=== PATIENT | female | born 1955 | race Caucasian/White ===

== ENCOUNTER 2022-07-03 18:57 | Inpatient (IN) ==
[2022-07-03] MEDS ORDERED: ACETAMINOPHEN 1,000 MG/100 ML VIAL IV STA (19:21)
[2022-07-03] MEDS ORDERED: cefTRIAXone SODIUM 2,000 MG/70 ML BAG IV STA (19:34)
[2022-07-03] MEDS ORDERED: SODIUM CHLORIDE 0.9% 1000ML 1,000 ML IV ONE (19:34)
[2022-07-03] MEDS ORDERED: VANCOMYCIN CONSULT ACTIVE PRN (19:34)
[2022-07-03] MEDS ORDERED: VANCOMYCIN HCL 2,250 MG in SODIUM CHLORIDE 0.9% 500 ML IV ONE (19:34)
[2022-07-03] MEDS ORDERED: OPTIRAY 320 500ml IV ONE (19:53)
[2022-07-03 19:55] LABS: iSTAT Creatinine 0.7 mg/dl (0.6-1.3); iSTAT Hemoglobin 11.2 g/dl (12.0-16.0); iSTAT Ionized Calcium 1.38 mmol/l (1.12-1.32); iSTAT Potassium 3.3 mmol/L (3.3-5.0)
[2022-07-03 20:06] LABS: Albumin Globulin Ratio 1.2 (0.9-2); Albumin Level 3.7 gm/dl (3.4-5.0); BUN Creatinine Ratio 37.7 (10-20); Bilirubin,Total 0.5 mg/dl (0.2-1.0); Calcium 10.3 mg/dl (8.6-10.3); Creatinine Clr Calc Pharmacy 95.4 ml/min; Est GFR (African American) 105.9 ml/min; Est GFR (Non-African American) 91.4 ml/min; Magnesium 1.8 mg/dl (1.7-2.4); Potassium 3.3 mmol/L (3.5-5.1); Total Protein 6.7 gm/dl (6.0-8.3)
[2022-07-03 20:15] LABS: Troponin I High Sensitivity 40.1 pg/ml (0-14)
[2022-07-03 20:17] LABS: INR 1.2 (0.9-1.1); Partial Thromboplastin Ratio 1.1; Partial Thromboplastin Time 31.8 Seconds (21.0-31.0); Prothrombin Time 13.5 Seconds (9.0-12.0)
[2022-07-03 20:24] LABS: Procalcitonin 3.91 ng/ml (0-0.5)
--- NOTE | 2022-07-03 20:25 | XRay Report ---
XR chest 1V portable HISTORY: neuro deficit, acute stroke suspected COMPARISON: None. FINDINGS: Slightly rotated study. No pneumothorax. No pleural effusions. No focal lung consolidations to suggest a pneumonia. No evidence for pulmonary edema. Calcified left hilar lymph nodes are noted. Incidental note is made of a small right azygos lobe. The heart is normal in size. Mild scoliosis is noted. Prior cholecystectomy. There is a punctate calcified granuloma within the left midlung zone. IMPRESSION: No acute process. ACT 112: Negative or not required by law. Electronically signed by: Vasquez Gann M.D. 07/03/2022 8:24 PM
[2022-07-03 20:30] LABS: Lyme Ab IgM w/WB Rflx Negative (Negative)
[2022-07-03 20:34] LABS: Lyme Ab IgG w/WB Rflx Positive (Negative)
[2022-07-03 20:45] LABS: Hematocrit (blood only) 35.5 % (37.0-47.0); Mean Corpuscular Hemoglobin 29.3 pg (25.0-34.0); Mean Corpuscular Hgb Conc 33.8 g/dL (32.0-36.0); Mean Corpuscular Volume 86.6 fL (80.0-100.0); Mean Platelet Volume 10.8 fL (9.4-12.4); Platelet Count 81 K/uL (130-400); RDW Standard Deviation 44.2 fL (36.4-46.3); White Blood Count 4.89 K/ul (4.8-10.8)
[2022-07-03 20:46] LABS: Basophils # (auto) 0.01 K/uL (0-0.2); Basophils % (auto) 0.2 %; Immature Granulocytes # (auto) 0.01 K/uL (0.01-0.20); Immature Granulocytes % (auto) 0.2 %; Lymphocytes # (auto) 0.29 K/uL (1.2-3.4); Lymphocytes % (auto) 5.9 %; Monocytes # (auto) 0.08 K/uL (0.11-0.59); Monocytes % (auto) 1.6 %; Neutrophils % (auto) 92.1 %; RBC Morphology Unremarkable
--- NOTE | 2022-07-03 20:51 | CT Scan Report ---
HEAD CT NONCONTRAST CT DOSE: HISTORY: Right-sided weakness. Confusion. neuro deficit, acute stroke suspected TECHNIQUE: Multiaxial CT images of the head were performed without the use of intravenous contrast. A utomated exposure control was utilized for this study. A dose lowering technique was utilized adheri ng to the principles of ALARA. Comparison: None. Findings: The paranasal sinuses and mastoid air cells are clear. The calvarium and skull base are int act. There is no mass, hematoma, midline shift, acute infarct. White matter hypodensity is nonspecifi c but suggestive of microvascular ischemic change. The ventricles and sulci are within normal limits. Impression: No acute intracranial abnormality. ACT 112: Negative or not required by law. Electronically signed by: Vasquez Gann M.D. 07/03/2022 8:49 PM
[2022-07-03] MEDS ORDERED: DOXYCYCLINE HYCLATE 100 MG in DEXTROSE 5% 100 ML IV STA (20:52)
--- NOTE | 2022-07-03 20:59 | CT Scan Report ---
HEAD & NECK CTA HISTORY: Right-sided weakness. Confusion. neuro deficit, acute stroke suspected TECHNIQUE: Multiaxial CT images of the head were performed following the intravenous administration o f contrast to evaluate the major cerebral vessels. Multiaxial CT images of the neck were also perform ed following the intravenous administration of contrast to evaluate the major cervical vessels. Maxim um intensity projection images were also obtained. A dose lowering technique was utilized adhering to the principles of ALARA. COMPARISON: Noncontrast head CT 07/03/2022. FINDINGS: There is no mass, hematoma, midline shift, or acute infarct. Visualized intracranial internal carotid arteries, distal vertebral arteries, and basilar artery are widely patent. There is no significant s tenosis, occlusion, or aneurysm seen within the bilateral ACAs, MCAs, or bumboater. The major dural venous sinuses are patent. The aortic arch and proximal great vessels are widely patent. There is no significant stenosis, occ lusion, or dissection identified within the bilateral common carotid, internal carotid, or vertebral arteries. IMPRESSION: 1. No significant stenosis, occlusion, or aneurysm within the [place]. 2. No significant stenosis, occlusion, or dissection identified within the carotid or vertebral arter ies. ACT 112: Negative or not required by law. Electronically signed by: Vasquez Gann M.D. 07/03/2022 8:57 PM
--- NOTE | 2022-07-03 20:59 | CT Scan Report ---
HEAD & NECK CTA HISTORY: Right-sided weakness. Confusion. neuro deficit, acute stroke suspected TECHNIQUE: Multiaxial CT images of the head were performed following the intravenous administration o f contrast to evaluate the major cerebral vessels. Multiaxial CT images of the neck were also perform ed following the intravenous administration of contrast to evaluate the major cervical vessels. Maxim um intensity projection images were also obtained. A dose lowering technique was utilized adhering to the principles of ALARA. COMPARISON: Noncontrast head CT 07/03/2022. FINDINGS: There is no mass, hematoma, midline shift, or acute infarct. Visualized intracranial internal carotid arteries, distal vertebral arteries, and basilar artery are widely patent. There is no significant s tenosis, occlusion, or aneurysm seen within the bilateral ACAs, MCAs, or card assembler. The major dural venous sinuses are patent. The aortic arch and proximal great vessels are widely patent. There is no significant stenosis, occ lusion, or dissection identified within the bilateral common carotid, internal carotid, or vertebral arteries. IMPRESSION: 1. No significant stenosis, occlusion, or aneurysm within the [place]. 2. No significant stenosis, occlusion, or dissection identified within the carotid or vertebral arter ies. ACT 112: Negative or not required by law. Electronically signed by: Vasquez Gann M.D. 07/03/2022 8:57 PM
[2022-07-03] MEDS ORDERED: MAGNESIUM SULFATE / D5W 1 GM/100 ML BAG IV ONE (22:19)
[2022-07-03] MEDS ORDERED: NSS + 20MEQ KCL 20 MEQ/1,000 ML BAG IV ONE (22:19)
--- NOTE | 2022-07-03 22:52 | Emergency Department Note ---
History of Present Illness General Chief complaint: Lethargic Stated complaint: LETHARGIC Time Seen by Provider: 07/03/22 19:21 Source: family (Daughter at bedside) History of Present Illness Provider complaint: Lethargy Onset (ago): day(s) 2 67-year-old [facility] female presents to the emergency department with her daughter for lethargy and confusion. Daughter reports that starting on Saturday she noticed that the patient was becoming more confused. She reports nobody saw her yesterday that she did not report for work so they went to go check on her today and she was very confused and appeared very lethargic. Daughter reports that she was recently bit by a tick 1 week ago and they took her to a local doctor today who started her on doxycycline. No reported trauma. No other medical problems. Home Medications Medication Instructions Recorded Confirmed Type doxycycline monohydrate 100 mg 100 mg PO BID 07/03/22 07/03/22 History capsule Allergies Allergy/AdvReac Type Severity Reaction Status Date / Time No Known Allergies Allergy Verified 07/03/22 19:37 Past Med/Surg History Medical History No pertinent family history No pertinent past medical history Surgical History No pertinent past surgical history Social History Smoking Status: Never smoker Feels Safe at Home: Yes Physical Exam Vital Signs Vital Signs - 24 hr 07/03/22 18:43 07/03/22 19:12 07/03/22 18:44 Temperature 38.2 C H Temperature Source Oral Pulse Rate 74 76 Pulse Rate from SpO2 Sensor Respiratory Rate 20 Respiratory Effort / Characteristics Non-Labored Spontaneous Respiratory Depth Normal Blood Pressure 133/71 Blood Pressure Mean 91 Pulse Oximetry 94 94 Oxygen Delivery Method Room Air Room Air Sepsis Recent Fever Within 48 Hours Yes Sepsis New/Unexplained Change in Mental Status Yes Sepsis Action Taken by Nursing Physician Notified 07/03/22 18:44 07/03/22 21:02 07/03/22 19:10 Temperature 37.6 C H Temperature Source Oral Pulse Rate 77 Pulse Rate from SpO2 Sensor 77 Respiratory Rate 21 Respiratory Effort / Characteristics Non-Labored Spontaneous Respiratory Depth Blood Pressure Blood Pressure Mean Pulse Oximetry 94 Oxygen Delivery Method Sepsis Recent Fever Within 48 Hours Sepsis New/Unexplained Change in Mental Status Sepsis Action Taken by Nursing 07/03/22 19:20 07/03/22 19:30 07/03/22 19:31 Temperature Temperature Source Pulse Rate 72 74 74 Pulse Rate from SpO2 Sensor 72 73 74 Respiratory Rate 20 20 19 Respiratory Effort / Characteristics Respiratory Depth Blood Pressure 126/72 Blood Pressure Mean 90 Pulse Oximetry 94 97 100 Oxygen Delivery Method Sepsis Recent Fever Within 48 Hours Sepsis New/Unexplained Change in Mental Status Sepsis Action Taken by Nursing 07/03/22 19:40 07/03/22 20:07 07/03/22 20:09 Temperature Temperature Source Pulse Rate 73 70 69 Pulse Rate from SpO2 Sensor 73 69 Respiratory Rate 20 16 18 Respiratory Effort / Characteristics Respiratory Depth Blood Pressure 125/69 Blood Pressure Mean 87 Pulse Oximetry 99 97 Oxygen Delivery Method Sepsis Recent Fever Within 48 Hours Sepsis New/Unexplained Change in Mental Status Sepsis Action Taken by Nursing 07/03/22 20:10 07/03/22 20:20 07/03/22 20:30 Temperature Temperature Source Pulse Rate 69 68 69 Pulse Rate from SpO2 Sensor 69 68 Respiratory Rate 17 17 18 Respiratory Effort / Characteristics Respiratory Depth Blood Pressure Blood Pressure Mean Pulse Oximetry 96 93 Oxygen Delivery Method Sepsis Recent Fever Within 48 Hours Sepsis New/Unexplained Change in Mental Status Sepsis Action Taken by Nursing 07/03/22 20:35 07/03/22 20:40 07/03/22 20:45 Temperature Temperature Source Pulse Rate 67 67 67 Pulse Rate from SpO2 Sensor 67 67 67 Respiratory Rate 17 16 17 Respiratory Effort / Characteristics Respiratory Depth Blood Pressure 117/66 117/65 Blood Pressure Mean 83 82 Pulse Oximetry 97 96 99 Oxygen Delivery Method Sepsis Recent Fever Within 48 Hours Sepsis New/Unexplained Change in Mental Status Sepsis Action Taken by Nursing 07/03/22 20:50 07/03/22 21:00 07/03/22 22:45 Temperature 37.2 C Temperature Source Oral Pulse Rate 67 70 Pulse Rate from SpO2 Sensor 67 70 Respiratory Rate 16 17 Respiratory Effort / Characteristics Respiratory Depth Blood Pressure 121/67 Blood Pressure Mean 85 Pulse Oximetry 95 93 Oxygen Delivery Method Sepsis Recent Fever Within 48 Hours Sepsis New/Unexplained Change in Mental Status Sepsis Action Taken by Nursing 07/03/22 21:10 07/03/22 21:15 07/03/22 21:20 Temperature Temperature Source Pulse Rate 64 64 65 Pulse Rate from SpO2 Sensor 64 65 65 Respiratory Rate 15 17 16 Respiratory Effort / Characteristics Respiratory Depth Blood Pressure 102/67 Blood Pressure Mean 78 Pulse Oximetry 92 94 93 Oxygen Delivery Method Sepsis Recent Fever Within 48 Hours Sepsis New/Unexplained Change in Mental Status Sepsis Action Taken by Nursing 07/03/22 21:30 07/03/22 21:40 07/03/22 21:45 Temperature Temperature Source Pulse Rate 60 61 60 Pulse Rate from SpO2 Sensor 66 61 60 Respiratory Rate 16 15 16 Respiratory Effort / Characteristics Respiratory Depth Blood Pressure 114/63 102/65 Blood Pressure Mean 80 77 Pulse Oximetry 93 93 93 Oxygen Delivery Method Sepsis Recent Fever Within 48 Hours Sepsis New/Unexplained Change in Mental Status Sepsis Action Taken by Nursing 07/03/22 21:50 07/03/22 22:00 07/03/22 22:10 Temperature Temperature Source Pulse Rate 60 58 L 58 L Pulse Rate from SpO2 Sensor 60 58 L 58 L Respiratory Rate 15 15 14 Respiratory Effort / Characteristics Respiratory Depth Blood Pressure 114/67 Blood Pressure Mean 82 Pulse Oximetry 92 93 93 Oxygen Delivery Method Sepsis Recent Fever Within 48 Hours Sepsis New/Unexplained Change in Mental Status Sepsis Action Taken by Nursing 07/03/22 22:15 07/03/22 22:20 07/03/22 22:30 Temperature Temperature Source Pulse Rate 57 L 56 L 56 L Pulse Rate from SpO2 Sensor 57 L 57 L 56 L Respiratory Rate 15 15 15 Respiratory Effort / Characteristics Respiratory Depth Blood Pressure 102/63 104/65 Blood Pressure Mean 76 78 Pulse Oximetry 94 93 96 Oxygen Delivery Method Sepsis Recent Fever Within 48 Hours Sepsis New/Unexplained Change in Mental Status Sepsis Action Taken by Nursing 07/03/22 22:40 Temperature Temperature Source Pulse Rate 54 L Pulse Rate from SpO2 Sensor 54 L Respiratory Rate 14 Respiratory Effort / Characteristics Respiratory Depth Blood Pressure Blood Pressure Mean Pulse Oximetry 95 Oxygen Delivery Method Sepsis Recent Fever Within 48 Hours Sepsis New/Unexplained Change in Mental Status Sepsis Action Taken by Nursing Physical Exam HENT: Exam performed. -Head: Normocephalic and atraumatic. -Right Ear: External ear normal. No mastoid erythema -Left Ear: External ear normal. No mastoid erythema -Mouth/Throat: The oropharynx is clear and moist. No trismus in the jaw. No dental abscesses or uvula swelling. No oropharyngeal exudate or tonsillar abscesses. EYES: Conjunctivae and EOM are normal. Pupils are equal, round, and reactive to light. Right eye exhibits no discharge. Left eye exhibits no discharge. No scleral icterus. NECK: Normal range of motion. Neck supple. No JVD present. No spinous process tenderness present. No rigidity. No tracheal deviation and normal range of motion present. No Brudzinski's sign and no Kernig's sign noted. CV: Normal rate, regular rhythm, normal heart sounds and intact distal pulses. There is no peripheral edema. Palpable radial pulses bue. PULM/CHEST: Effort normal and breath sounds normal. No respiratory distress. No stridor. She has no wheezes. She has no rales. -Chest Wall: She exhibits no tenderness. ABD: The abdomen is soft. Bowel sounds are normal. She has no distension.There is no rebound, no guarding. NEURO: She is alert and oriented to person, but not to place or time. Mild dysarthria. Mild expressive aphasia. No leg drift no arm drift. Sensation intact. SKIN: Large erythematous and warm to touch region over the patient's posterior left thigh where the daughter states she was bit by a tick. There is no target lesion. No fluctuant areas. No vesicles. Nikolsky negative. Consistent with appearance of cellulitis. Course Course 1920: The patient was evaluated in room B2. A complete history and physical exam was performed Cardiac monitoring: An order was placed for continuous cardiac monitoring. The monitor shows a rate of 60 with sinus rhythm interpreted by me Patient was last seen normal more than 24 hours ago no code stroke was called. Patient does appear to have large cellulitis on her left posterior thigh. Empiric antibiotics vancomycin and Rocephin ordered for the patient. 2049: Patient's labs show mild hyponatremia and mildly elevated liver function tests. Lyme IgM negative Lyme IgG positive. There is strong concern for anaplasmosis given the patient's labs and presentation. Doxycycline 100 mg IV ordered for the patient as well. 2119: Vital signs stable. CT head CTA head and neck are negative. Labs show a white blood cell count of 4.89 on the lower side of normal. Thrombocytopenia with platelet count of 81. Sodium 130. Potassium 3.3. AST 76 ALT 39. Troponin elevated at 40.1. Procalcitonin elevated 3.91. Red blood cell morphology was unremarkable on the peripheral smear showed interest cytoplasmic neutrophilic inclusions which again goes with the concern for anaplasmosis. Patient will be admitted to the [facility] team Dr. Banks will be notified. Administered Medications Doxycycline Hyclate 100 mg/ (Dextrose) 110 mls @ 50 mls/hr IV NOW STA Stop: 07/03/22 23:03 Last Admin: 07/03/22 21:08 Dose: 50 mls/hr Documented By: JESSI Discontinued Medications Acetaminophen (Ofirmev) 1,000 mg in 100 mls @ 400 mls/hr IV NOW STA Stop: 07/03/22 19:35 Last Infusion: 07/03/22 21:00 Dose: 0 mls/hr Documented By: Admin: 07/03/22 20:15 Dose: 400 mls/hr Documented By: JESSI Sodium Chloride (Nss 1000ml) 1,000 mls @ 999 mls/hr IV .Q1H1M ONE Stop: 07/03/22 20:34 Last Infusion: 07/03/22 21:02 Dose: 0 mls/hr Documented By: Admin: 07/03/22 20:00 Dose: 999 mls/hr Documented By: JESSI Ceftriaxone Sodium (Rocephin) 2,000 mg in 70 mls @ 140 mls/hr IV NOW STA Stop: 07/03/22 20:03 Last Infusion: 07/03/22 21:02 Dose: 0 mls/hr Documented By: Admin: 07/03/22 20:30 Dose: 140 mls/hr Documented By: JESSI Ioversol (Optiray 320 500ml) 115 ml IV ONCE ONE Stop: 07/03/22 19:54 Last Admin: 07/03/22 19:53 Dose: 115 ml Documented By: ELSI Medical Decision Making Laboratory Data Attestation: I reviewed the patient's lab results. 07/03/22 19:15 07/03/22 19:15 Lab Results 07/03/22 07/03/22 07/03/22 Range/Units 19:15 19:15 19:15 WBC 4.89 (4.8-10.8) K/ul RBC 4.10 L (4.20-5.40) M/uL Hgb 12.0 (12.0-16.0) g/dl POC Hgb (12.0-16.0) g/dl Hct 35.5 L (37.0-47.0) % POC Hct (37-47) % MCV 86.6 (80.0-100.0) fL MCH 29.3 (25.0-34.0) pg MCHC 33.8 (32.0-36.0) g/dL RDW Std Deviation 44.2 (36.4-46.3) fL RDW Coeff of Rashaun 14.0 (11.5-14.5) % Plt Count 81 L (130-400) K/uL MPV 10.8 (9.4-12.4) fL Immature Gran % (Auto) 0.2 % Neut % (Auto) 92.1 % Lymph % (Auto) 5.9 % Gonzales % (Auto) 1.6 % Eos % (Auto) 0.0 % Baso % (Auto) 0.2 % Neut # (Auto) 4.50 (1.40-6.50) K/uL Lymph # (Auto) 0.29 L (1.2-3.4) K/uL Gonzales # (Auto) 0.08 L (0.11-0.59) K/uL Eos # (Auto) 0.00 (0-0.50) K/uL Baso # (Auto) 0.01 (0-0.2) K/uL Immature Gran # (Auto) 0.01 (0.01-0.20) K/uL RBC Morphology Unremarkable PT 13.5 H (9.0-12.0) Seconds INR 1.2 H (0.9-1.1) APTT 31.8 H (21.0-31.0) Seconds PTT Ratio 1.1 POC Sodium (135-144) mmol/L Sodium 130 L (136-145) mmol/L POC Potassium (3.3-5.0) mmol/L Potassium 3.3 L (3.5-5.1) mmol/L POC Chloride (101-112) mmol/L Chloride 101 (98-107) mmol/L Carbon Dioxide 23 (21-32) mmol/L POC Total CO2 (24-31) mmol/L Anion Gap 6 (3-11) POC Anion Gap (16-25) mmol/L POC BUN (7-18) mg/dl BUN 26 H (6-23) mg/dl Creatinine 0.69 (0.6-1.2) mg/dl POC Creatinine (0.6-1.3) mg/dl Est Cr Clr Drug Dosing 95.4 ml/min Est GFR ( Amer) 105.9 ml/min Est GFR (Non-Af Amer) 91.4 ml/min BUN/Creatinine Ratio 37.7 H (10-20) Glucose 110 H (70-99(Fasting)) mg/dl POC Glucose (other) (70-99) mg/dl Lactate (0.4-2.0) mmol/L Calcium 10.3 (8.6-10.3) mg/dl POC Ioniz Calcium Harini (1.12-1.32) mmol/l Magnesium 1.8 (1.7-2.4) mg/dl Total Bilirubin 0.5 (0.2-1.0) mg/dl AST 76 H (13-39) U/L ALT 39 (7-52) U/L Alkaline Phosphatase 68 (34-104) U/L Troponin I High Sens 40.1 H (0-14) pg/ml Total Protein 6.7 (6.0-8.3) gm/dl Albumin 3.7 (3.4-5.0) gm/dl Globulin 3.0 (2.5-4.0) gm/dl Albumin/Globulin Ratio 1.2 (0.9-2) Procalcitonin (0-0.5) ng/ml Anaplasma Smear See Comment A Babesia Smear See Comment Lyme Disease IgG Ab (Negative) Lyme Disease IgM Ab (Negative) Blood Type Antibody Screen 07/03/22 07/03/22 07/03/22 Range/Units 19:15 19:41 20:19 WBC (4.8-10.8) K/ul RBC (4.20-5.40) M/uL Hgb (12.0-16.0) g/dl POC Hgb 11.2 L (12.0-16.0) g/dl Hct (37.0-47.0) % POC Hct 33 L (37-47) % MCV (80.0-100.0) fL MCH (25.0-34.0) pg MCHC (32.0-36.0) g/dL RDW Std Deviation (36.4-46.3) fL RDW Coeff of Rashaun (11.5-14.5) % Plt Count (130-400) K/uL MPV (9.4-12.4) fL Immature Gran % (Auto) % Neut % (Auto) % Lymph % (Auto) % Gonzales % (Auto) % Eos % (Auto) % Baso % (Auto) % Neut # (Auto) (1.40-6.50) K/uL Lymph # (Auto) (1.2-3.4) K/uL Gonzales # (Auto) (0.11-0.59) K/uL Eos # (Auto) (0-0.50) K/uL Baso # (Auto) (0-0.2) K/uL Immature Gran # (Auto) (0.01-0.20) K/uL RBC Morphology PT (9.0-12.0) Seconds INR (0.9-1.1) APTT (21.0-31.0) Seconds PTT Ratio POC Sodium 133 L (135-144) mmol/L Sodium (136-145) mmol/L POC Potassium 3.3 (3.3-5.0) mmol/L Potassium (3.5-5.1) mmol/L POC Chloride 101 (101-112) mmol/L Chloride (98-107) mmol/L Carbon Dioxide (21-32) mmol/L POC Total CO2 22 L (24-31) mmol/L Anion Gap (3-11) POC Anion Gap 15.0 L (16-25) mmol/L POC BUN 24 H (7-18) mg/dl BUN (6-23) mg/dl Creatinine (0.6-1.2) mg/dl POC Creatinine 0.7 (0.6-1.3) mg/dl Est Cr Clr Drug Dosing ml/min Est GFR ( Amer) ml/min Est GFR (Non-Af Amer) ml/min BUN/Creatinine Ratio (10-20) Glucose (70-99(Fasting)) mg/dl POC Glucose (other) 102 H (70-99) mg/dl Lactate 1.1 (0.4-2.0) mmol/L Calcium (8.6-10.3) mg/dl POC Ioniz Calcium Harini 1.38 H (1.12-1.32) mmol/l Magnesium (1.7-2.4) mg/dl Total Bilirubin (0.2-1.0) mg/dl AST (13-39) U/L ALT (7-52) U/L Alkaline Phosphatase (34-104) U/L Troponin I High Sens (0-14) pg/ml Total Protein (6.0-8.3) gm/dl Albumin (3.4-5.0) gm/dl Globulin (2.5-4.0) gm/dl Albumin/Globulin Ratio (0.9-2) Procalcitonin 3.91 H (0-0.5) ng/ml Anaplasma Smear Babesia Smear Lyme Disease IgG Ab Positive A (Negative) Lyme Disease IgM Ab Negative (Negative) Blood Type Antibody Screen 07/03/22 Range/Units 20:20 WBC (4.8-10.8) K/ul RBC (4.20-5.40) M/uL Hgb (12.0-16.0) g/dl POC Hgb (12.0-16.0) g/dl Hct (37.0-47.0) % POC Hct (37-47) % MCV (80.0-100.0) fL MCH (25.0-34.0) pg MCHC (32.0-36.0) g/dL RDW Std Deviation (36.4-46.3) fL RDW Coeff of Rashaun (11.5-14.5) % Plt Count (130-400) K/uL MPV (9.4-12.4) fL Immature Gran % (Auto) % Neut % (Auto) % Lymph % (Auto) % Gonzales % (Auto) % Eos % (Auto) % Baso % (Auto) % Neut # (Auto) (1.40-6.50) K/uL Lymph # (Auto) (1.2-3.4) K/uL Gonzales # (Auto) (0.11-0.59) K/uL Eos # (Auto) (0-0.50) K/uL Baso # (Auto) (0-0.2) K/uL Immature Gran # (Auto) (0.01-0.20) K/uL RBC Morphology PT (9.0-12.0) Seconds INR (0.9-1.1) APTT (21.0-31.0) Seconds PTT Ratio POC Sodium (135-144) mmol/L Sodium (136-145) mmol/L POC Potassium (3.3-5.0) mmol/L Potassium (3.5-5.1) mmol/L POC Chloride (101-112) mmol/L Chloride (98-107) mmol/L Carbon Dioxide (21-32) mmol/L POC Total CO2 (24-31) mmol/L Anion Gap (3-11) POC Anion Gap (16-25) mmol/L POC BUN (7-18) mg/dl BUN (6-23) mg/dl Creatinine (0.6-1.2) mg/dl POC Creatinine (0.6-1.3) mg/dl Est Cr Clr Drug Dosing ml/min Est GFR ( Amer) ml/min Est GFR (Non-Af Amer) ml/min BUN/Creatinine Ratio (10-20) Glucose (70-99(Fasting)) mg/dl POC Glucose (other) (70-99) mg/dl Lactate (0.4-2.0) mmol/L Calcium (8.6-10.3) mg/dl POC Ioniz Calcium Harini (1.12-1.32) mmol/l Magnesium (1.7-2.4) mg/dl Total Bilirubin (0.2-1.0) mg/dl AST (13-39) U/L ALT (7-52) U/L Alkaline Phosphatase (34-104) U/L Troponin I High Sens (0-14) pg/ml Total Protein (6.0-8.3) gm/dl Albumin (3.4-5.0) gm/dl Globulin (2.5-4.0) gm/dl Albumin/Globulin Ratio (0.9-2) Procalcitonin (0-0.5) ng/ml Anaplasma Smear Babesia Smear Lyme Disease IgG Ab (Negative) Lyme Disease IgM Ab (Negative) Blood Type A Negative Antibody Screen NEGATIVE Imaging Data Attestation: I personally reviewed and interpreted this imaging study as follows: My Impression: CT head: No [facility] Radiologist's Impression: Chest X-Ray 07/03/22 19:21 XR chest 1V portable HISTORY: neuro deficit, acute stroke suspected COMPARISON: None. FINDINGS: Slightly rotated study. No pneumothorax. No pleural effusions. No focal lung consolidations to suggest a pneumonia. No evidence for pulmonary edema. Calcified left hilar lymph nodes are noted. Incidental note is made of a small right azygos lobe. The heart is normal in size. Mild scoliosis is noted. Prior cholecystectomy. There is a punctate calcified granuloma within the left midlung zone. IMPRESSION: No acute process. ACT 112: Negative or not required by law. Electronically signed by: Vasquez Gann M.D. 07/03/2022 8:[address] 07/03/22 19:[address] DOSE: HISTORY: Right-sided weakness. Confusion. neuro deficit, acute stroke suspected TECHNIQUE: Multiaxial CT images of the head were performed without the use of intravenous contrast. Automated exposure control was utilized for this study. A dose lowering technique was utilized adhering to the principles of ALARA. Comparison: None. Findings: The paranasal sinuses and mastoid air cells are clear. The calvarium and skull base are intact. There is no mass, hematoma, midline shift, acute infarct. White matter hypodensity is nonspecific but suggestive of microvascular ischemic change. The ventricles and sulci are within normal limits. Impression: No acute intracranial abnormality. ACT 112: Negative or not required by law. Electronically signed by: Vasquez Gann M.D. 07/03/2022 8:49 PM Head CTA 07/03/22 19:21 HEAD & NECK CTA HISTORY: Right-sided weakness. Confusion. neuro deficit, acute stroke suspected TECHNIQUE: Multiaxial CT images of the head were performed following the intrave nous administration of contrast to evaluate the major cerebral vessels. Multiaxial CT images of the neck were also performed following the intravenous administration of contrast to evaluate the major cervical vessels. Maximum intensity projection images were also obtained. A dose lowering technique was utilized adhering to the principles of ALARA. COMPARISON: Noncontrast head CT 07/03/2022. FINDINGS: There is no mass, hematoma, midline shift, or acute infarct. Visualized intracranial internal carotid arteries, distal vertebral arteries, and basilar artery are widely patent. There is no significant stenosis, occlusion, or aneurysm seen within the bilateral ACAs, MCAs, or contract negotiation manager. The major dural venous sinuses are patent. The aortic arch and proximal great vessels are widely patent. There is no significant stenosis, occlusion, or dissection identified within the bilateral common carotid, internal carotid, or vertebral arteries. IMPRESSION: 1. No significant stenosis, occlusion, or aneurysm within the knik of [place]. 2. No significant stenosis, occlusion, or dissection identified within the carotid or vertebral arteries. ACT 112: Negative or not required by law. Electronically signed by: Vasquez Gann M.D. 07/03/2022 8:57 PM Neck CTA 07/03/22 19:21 HEAD & NECK CTA HISTORY: Right-sided weakness. Confusion. neuro deficit, acute stroke suspected TECHNIQUE: Multiaxial CT images of the head were performed following the intravenous administration of contrast to evaluate the major cerebral vessels. Multiaxial CT images of the neck were also performed following the intravenous administration of contrast to evaluate the major cervical vessels. Maximum intensity projection images were also obtained. A dose lowering technique was utilized adhering to the principles of ALARA. COMPARISON: Noncontrast head CT 07/03/2022. FINDINGS: There is no mass, hematoma, midline shift, or acute infarct. Visualized intracranial internal carotid arteries, distal vertebral arteries, and basilar artery are widely patent. There is no significant stenosis, occlusion, or aneurysm seen within the bilateral ACAs, MCAs, or contract negotiation manager. The major dural venous sinuses are patent. The aortic arch and proximal great vessels are widely patent. There is no significant stenosis, occlusion, or dissection identified within the bilateral common carotid, internal carotid, or vertebral arteries. IMPRESSION: 1. No significant stenosis, occlusion, or aneurysm within the knik of [place]. 2. No significant stenosis, occlusion, or dissection identified within the carotid or vertebral arteries. ACT 112: Negative or not required by law. Electronically signed by: Vasquez Gann M.D. 07/03/2022 8:57 PM ECG Data Attestation: I personally reviewed and interpreted this ECG as follows: Indication: + altered mental status Rate (beats per minute): 74 Rhythm: + normal sinus ECG Intervals/blocks: + Normal QRS, + Normal IA and + Normal QT-c ECG ST segments: + Normal ST segments MDM Narrative 1920: The patient was evaluated in room B2. A complete history and physical exam was performed Cardiac monitoring: An order was placed for continuous cardiac monitoring. The monitor shows a rate of 60 with sinus rhythm interpreted by me Patient was last seen normal more than 24 hours ago no code stroke was called. Patient does appear to have large cellulitis on her left posterior thigh. Empiric antibiotics vancomycin and Rocephin ordered for the patient. 2049: Patient's labs show mild hyponatremia and mildly elevated liver function tests. Lyme IgM negative Lyme IgG positive. There is strong concern for anaplasmosis given the patient's labs and presentation. Doxycycline 100 mg IV ordered for the patient as well. 2119: Vital signs stable. CT head CTA head and neck are negative. Labs show a white blood cell count of 4.89 on the lower side of normal. Thrombocytopenia with platelet count of 81. Sodium 130. Potassium 3.3. AST 76 ALT 39. Troponin elevated at 40.1. Procalcitonin elevated 3.91. Red blood cell morphology was unremarkable on the peripheral smear showed interest cytoplasmic neutrophilic inclusions which again goes with the concern for anaplasmosis. Patient will be admitted to the [facility]ist team Dr. Banks will be notified. Impression & Plan Anaplasmosis, Elevated troponin Discharge Plan Visit Data Chief Complaint: Lethargic Stated Complaint: LETHARGIC ED Provider: Wesley Espino Discharge Problem: Anaplasmosis, Elevated troponin Patient Disposition: Admitted As Inpatient Forms Stand Alone Forms: [facility] Prescriptions Prescriptions: No Action doxycycline monohydrate 100 mg Capsule 100 mg PO BID Rx Instructions: STARTED 07/03/22 Referrals Referrals: PCP,NO [Primary Care Provider] -
[2022-07-04] MEDS ORDERED: ATROPINE SULFATE 0.1 MG/ML 10ML SYR IV STA (01:35)
--- NOTE | 2022-07-04 01:35 | History & Physical Report ---
Date of Service July 04, 2022 Assessment & Plan (1) Sepsis: Plan: Severe sepsis SIRS plus encephalopathy Likely from tickborne infection and systemic manifestations [PRACTICE ASSISTANT (transient right facial weakness rule out TIA) and cardiovascular (bradycardia causing hypotension and encephalopathy)] Another source would be left lower extremity wound for few months duration rule out osteomyelitis Abnormal LFTs likely secondary to tickborne infection Hyperglycemia rule out DM Leukopenia, thrombocytopenia secondary to illness PCU given hypotension, bradycardia IV atropine 1 dose now CS, ceftriaxone and doxycycline Follow-up tickborne panel results CT left lower leg rule out abscess ID consult MRI brain, TTE for TIA work-up Follow LFTs Peripheral blood smear Re: Abnormal CBC check hemoglobin A1c Further management pending work-up results DVT prophylaxis. SCDs Re: Thrombocytopenia Full code Patient daughter requesting updates providers. ( Elba Alarcon, contact #[phone].) Text document was generated using [employer] voice recognition software. It may contain grammatical or spelling errors. Kindly contact undersigned for clarification of any documentation item in question. History of Present Illness Chief Complaint: weak all over Primary Care Provider: NO PCP History obtained from patient, family, and records. Limited history from patient secondary to the lethargic state. No significant medical history. Patient has had a wound on the left lower leg for a few months now as per daughter. Daughter not sure if patient had consulted a doctor for issue. Patient noted to have worsening confusion and lethargy over the last 2 days. Possible tick bite on her left leg close to the knee last week. Local doctor started patient on doxycycline course. Patient feeling weak all over. Denies headache, chest pain, SOB, abdominal pain. Patient noted to have transient right facial weakness. At the ER, IV vancomycin, ceftriaxone, and doxycycline administered for sepsis. Patient mentation much improved as per daughter. Patient BP later noted to be 90s, heart rate 50s. Medical History as above Surgical History : Cholecystectomy Family History : DM Personal/Social history : Non-smoker, no EtOH intake, grocery employee Allergies Allergy/AdvReac Type Severity Reaction Status Date / Time No Known Allergies Allergy Verified 07/03/22 19:37 Home Medications Medication Instructions Recorded Confirmed Type doxycycline monohydrate 100 mg 100 mg PO BID 07/03/22 07/03/22 History capsule Past Med/Surg History Medical History No pertinent family history No pertinent past medical history Surgical History No pertinent past surgical history Social History Smoking Status: Never smoker Second Hand Exposure: No; Do You Dip or Chew Tobacco: No; Tobacco Cessation Education Requested by Patient: No Hx Alcohol Use: No Hx Substance Use: No Preferred Language: Mosotho Communication Ability: Effective Communication Tools: Other Instructor Tap Dancing Required: Yes Beliefs That Will Affect Care: None Current Living Situation: Alone and Family Other Information That Helps Us Care for You: No Feels Safe at Home: Yes Safety Concerns: Feels Safe At This Time Assistive Devices: None Review of Systems Review of Systems: Could not be reliably obtained secondary to lethargic state Physical Exam Physical Exam: GENERAL: Lethargic, no respiratory distress SKIN: Normal color, warm HEENT: [place] palpebral conjunctivae, no ptosis, dry buccal mucosa NECK : Supple, no tenderness CHEST : CTA, no tenderness HEART : Bradycardic, no obvious murmurs ABDOMEN: Some distention, nontender EXTREMITIES : Scaly rash over left lower extremity, minimal LLE swelling/tenderness, no other conspicuous deformities noted NEUROLOGIC : Lethargic, no facial asymmetry, gait and stance not assessed Results & Data Results & Data Vital Signs (Past 12 Hours) Vital Signs Temp Pulse Resp BP Pulse Ox O2 Del Method 07/04/22 00:38 36.5 C 07/04/22 00:20 51 L 14 07/04/22 00:15 51 L 14 93/69 L 07/04/22 00:10 52 L 14 07/04/22 00:00 52 L 14 07/03/22 23:50 51 L 16 07/03/22 23:40 52 L 16 07/03/22 23:30 51 L 14 109/64 97 07/03/22 23:20 52 L 16 99 07/03/22 23:15 52 L 14 97/68 L 92 07/03/22 23:10 53 L 13 95 07/03/22 23:00 53 L 13 110/72 95 07/03/22 22:50 55 L 16 97 07/03/22 23:39 36.5 C 07/03/22 23:14 53 L 07/03/22 22:40 54 L 14 95 07/03/22 22:30 56 L 15 104/65 96 07/03/22 22:20 56 L 15 93 07/03/22 22:15 57 L 15 102/63 94 07/03/22 22:10 58 L 14 93 07/03/22 22:00 58 L 15 114/67 93 07/03/22 21:50 60 15 92 07/03/22 21:45 60 16 102/65 93 07/03/22 21:40 61 15 93 07/03/22 21:30 60 16 114/63 93 07/03/22 21:20 65 16 93 07/03/22 21:15 64 17 102/67 94 07/03/22 21:10 64 15 92 07/03/22 22:45 37.2 C 07/03/22 21:00 70 17 121/67 93 07/03/22 20:50 67 16 95 07/03/22 20:45 67 17 117/65 99 07/03/22 20:40 67 16 96 07/03/22 20:35 67 17 117/66 97 07/03/22 20:30 69 18 93 07/03/22 20:20 68 17 07/03/22 20:10 69 17 96 07/03/22 20:09 69 18 125/69 97 07/03/22 20:07 70 16 07/03/22 19:40 73 20 99 07/03/22 19:31 74 19 126/72 100 07/03/22 19:30 74 20 97 07/03/22 19:20 72 20 94 07/03/22 19:10 77 21 94 07/03/22 21:02 37.6 C H 07/03/22 18:44 94 Room Air 07/03/22 19:12 76 07/03/22 18:43 38.2 C H 74 20 133/71 94 Room Air Laboratory Results Laboratory Results WBC 4.89 K/ul (4.8-10.8) 07/03/22 19:15 RBC 4.10 M/uL (4.20-5.40) L 07/03/22 19:15 Hgb 12.0 g/dl (12.0-16.0) 07/03/22 19:15 POC Hgb 11.2 g/dl (12.0-16.0) L 07/03/22 19:41 Hct 35.5 % (37.0-47.0) L 07/03/22 19:15 POC Hct 33 % (37-47) L 07/03/22 19:41 MCV 86.6 fL (80.0-100.0) 07/03/22 19:15 MCH 29.3 pg (25.0-34.0) 07/03/22 19:15 MCHC 33.8 g/dL (32.0-36.0) 07/03/22 19:15 RDW Std Deviation 44.2 fL (36.4-46.3) 07/03/22 19:15 RDW Coeff of Rashaun 14.0 % (11.5-14.5) 07/03/22 19:15 Plt Count 81 K/uL (130-400) L 07/03/22 19:15 MPV 10.8 fL (9.4-12.4) 07/03/22 19:15 Immature Gran % (Auto) 0.2 % 07/03/22 19:15 Neut % (Auto) 92.1 % 07/03/22 19:15 Lymph % (Auto) 5.9 % 07/03/22 19:15 Cameron % (Auto) 1.6 % 07/03/22 19:15 Eos % (Auto) 0.0 % 07/03/22 19:15 Baso % (Auto) 0.2 % 07/03/22 19:15 Neut # (Auto) 4.50 K/uL (1.40-6.50) 07/03/22 19:15 Lymph # (Auto) 0.29 K/uL (1.2-3.4) L 07/03/22 19:15 Cameron # (Auto) 0.08 K/uL (0.11-0.59) L 07/03/22 19:15 Eos # (Auto) 0.00 K/uL (0-0.50) 07/03/22 19:15 Baso # (Auto) 0.01 K/uL (0-0.2) 07/03/22 19:15 Immature Gran # (Auto) 0.01 K/uL (0.01-0.20) 07/03/22 19:15 RBC Morphology Unremarkable 07/03/22 19:15 PT 13.5 Seconds (9.0-12.0) H 07/03/22 19:15 INR 1.2 (0.9-1.1) H 07/03/22 19:15 APTT 31.8 Seconds (21.0-31.0) H 07/03/22 19:15 PTT Ratio 1.1 07/03/22 19:15 POC Sodium 133 mmol/L (135-144) L 07/03/22 19:41 Sodium 130 mmol/L (136-145) L 07/03/22 19:15 POC Potassium 3.3 mmol/L (3.3-5.0) 07/03/22 19:41 Potassium 3.3 mmol/L (3.5-5.1) L 07/03/22 19:15 POC Chloride 101 mmol/L (101-112) 07/03/22 19:41 Chloride 101 mmol/L (98-107) 07/03/22 19:15 Carbon Dioxide 23 mmol/L (21-32) 07/03/22 19:15 POC Total CO2 22 mmol/L (24-31) L 07/03/22 19:41 Anion Gap 6 (3-11) 07/03/22 19:15 POC Anion Gap 15.0 mmol/L (16-25) L 07/03/22 19:41 POC BUN 24 mg/dl (7-18) H 07/03/22 19:41 BUN 26 mg/dl (6-23) H 07/03/22 19:15 Creatinine 0.69 mg/dl (0.6-1.2) 07/03/22 19:15 POC Creatinine 0.7 mg/dl (0.6-1.3) 07/03/22 19:41 Est Cr Clr Drug Dosing 95.4 ml/min 07/03/22 19:15 Est GFR ( Amer) 105.9 ml/min 07/03/22 19:15 Est GFR (Non-Af Amer) 91.4 ml/min 07/03/22 19:15 BUN/Creatinine Ratio 37.7 (10-20) H 07/03/22 19:15 Glucose 110 mg/dl (70-99(Fasting)) H 07/03/22 19:15 POC Glucose (other) 102 mg/dl (70-99) H 07/03/22 19:41 Lactate 1.1 mmol/L (0.4-2.0) 07/03/22 20:19 Calcium 10.3 mg/dl (8.6-10.3) 07/03/22 19:15 POC Ioniz Calcium Harini 1.38 mmol/l (1.12-1.32) H 07/03/22 19:41 Magnesium 1.8 mg/dl (1.7-2.4) 07/03/22 19:15 Total Bilirubin 0.5 mg/dl (0.2-1.0) 07/03/22 19:15 AST 76 U/L (13-39) H 07/03/22 19:15 ALT 39 U/L (7-52) 07/03/22 19:15 Alkaline Phosphatase 68 U/L (34-104) 07/03/22 19:15 Troponin I High Sens 42.1 pg/ml (0-14) H 07/03/22 22:52 Total Protein 6.7 gm/dl (6.0-8.3) 07/03/22 19:15 Albumin 3.7 gm/dl (3.4-5.0) 07/03/22 19:15 Globulin 3.0 gm/dl (2.5-4.0) 07/03/22 19:15 Albumin/Globulin Ratio 1.2 (0.9-2) 07/03/22 19:15 Procalcitonin 3.91 ng/ml (0-0.5) H 07/03/22 19:15 Anaplasma Smear See Comment A 07/03/22 19:15 Babesia Smear See Comment 07/03/22 19:15 Lyme Disease IgG Ab Positive (Negative) A 07/03/22 19:15 Lyme Disease IgM Ab Negative (Negative) 07/03/22 19:15 SARS-CoV-2, RNA, NAAT NEGATIVE (NEGATIVE) 07/03/22 21:57 Blood Type A Negative 07/03/22 20:20 Antibody Screen NEGATIVE 07/03/22 20:20 Impressions Chest X-Ray 07/03/22 19:21 XR chest 1V portable HISTORY: neuro deficit, acute stroke suspected COMPARISON: None. FINDINGS: Slightly rotated study. No pneumothorax. No pleural effusions. No focal lung consolidations to suggest a pneumonia. No evidence for pulmonary edema. Calcified left hilar lymph nodes are noted. Incidental note is made of a small right azygos lobe. The heart is normal in size. Mild scoliosis is noted. Prior cholecystectomy. There is a punctate calcified granuloma within the left midlung zone. IMPRESSION: No acute process. ACT 112: Negative or not required by law. Electronically signed by: Vasquez Gann M.D. 07/03/2022 8:[address] 07/03/22 19:[address] DOSE: HISTORY: Right-sided weakness. Confusion. neuro deficit, acute stroke suspected TECHNIQUE: Multiaxial CT images of the head were performed without the use of intravenous contrast. Automated exposure control was utilized for this study. A dose lowering technique was utilized adhering to the principles of ALARA. Comparison: None. Findings: The paranasal sinuses and mastoid air cells are clear. The calvarium and skull base are intact. There is no mass, hematoma, midline shift, acute infarct. White matter hypodensity is nonspecific but suggestive of microvascular ischemic change. The ventricles and sulci are within normal limits. Impression: No acute intracranial abnormality. ACT 112: Negative or not required by law. Electronically signed by: Vasquez Gann M.D. 07/03/2022 8:49 PM Head CTA 07/03/22 19:21 HEAD & NECK CTA HISTORY: Right-sided weakness. Confusion. neuro deficit, acute stroke suspected TECHNIQUE: Multiaxial CT images of the head were performed following the intravenous administration of contrast to evaluate the major cerebral vessels. Multiaxial CT images of the neck were also performed following the intravenous administration of contrast to evaluate the major cervical vessels. Maximum intensity projection images were also obtained. A dose lowering technique was utilized adhering to the principles of ALARA. COMPARISON: Noncontrast head CT 07/03/2022. FINDINGS: There is no mass, hematoma, midline shift, or acute infarct. Visualized intracranial internal carotid arteries, distal vertebral arteries, and basilar artery are widely patent. There is no significant stenosis, occlusion, or aneurysm seen within the bilateral ACAs, MCAs, or real time trader. The major dural venous sinuses are patent. The aortic arch and proximal great vessels are widely patent. There is no significant stenosis, occlusion, or dissection identified within the bilateral common carotid, internal carotid, or vertebral arteries. IMPRESSION: 1. No significant stenosis, occlusion, or aneurysm within the [place]. 2. No significant stenosis, occlusion, or dissection identified within the carotid or vertebral arteries. ACT 112: Negative or not required by law. Electronically signed by: Vasquez Gann M.D. 07/03/2022 8:57 PM Neck CTA 07/03/22 19:21 HEAD & NECK CTA HISTORY: Right-sided weakness. Confusion. neuro deficit, acute stroke suspected TECHNIQUE: Multiaxial CT images of the head were performed following the intravenous administration of contrast to evaluate the major cerebral vessels. Multiaxial CT images of the neck were also performed following the intravenous administration of contrast to evaluate the major cervical vessels. Maximum intensity projection images were also obtained. A dose lowering technique was utilized adhering to the principles of ALARA. COMPARISON: Noncontrast head CT 07/03/2022. FINDINGS: There is no mass, hematoma, midline shift, or acute infarct. Visualized intracranial internal carotid arteries, distal vertebral arteries, and basilar artery are widely patent. There is no significant stenosis, occlusion, or aneurysm seen within the bilateral ACAs, MCAs, or real time trader. The major dural venous sinuses are patent. The aortic arch and proximal great vessels are widely patent. There is no significant stenosis, occlusion, or dissection identified within the bilateral common carotid, internal carotid, or vertebral arteries. IMPRESSION: 1. No significant stenosis, occlusion, or aneurysm within the [place]. 2. No significant stenosis, occlusion, or dissection identified within the carotid or vertebral arteries. ACT 112: Negative or not required by law. Electronically signed by: Vasquez Gann M.D. 07/03/2022 8:57 PM Diagnostic Findings EKG as per my interpretation :Rate 75, NSR, normal axis, diffuse T wave abnormalities
[2022-07-04 01:46] LABS: Thyroid Stimulating Hormone 0.288 uIu/ml (0.300-4.500)
--- NOTE | 2022-07-04 02:24 | CT Scan Report ---
Exam(s): CT EXTREMITY LEFT LOWER Without Contrast EXAM: CT Left Lower Extremity Without Intravenous Contrast CLINICAL HISTORY: Reason for exam: swelling. TECHNIQUE: Axial computed tomography images of the left lower extremity without intravenous contrast. CTDI is 4.25 mGy and DLP is 204.66 mGy-cm. Automated exposure control was utilized for the study. A dose lowering technique was utilized adhering to the principles of ALARA. COMPARISON: None. FINDINGS: Bones/joints: Diffuse osteoporosis. Otherwise normal tibia and fibula with no acute fracture or destructive bony lesion seen. Mild degenerative disease at the level of the knee and ankle. Trace joint fluid at the level of the knee. No dislocation. Soft tissues: Unremarkable. Other findings: Diffuse varicosities throughout the calf demonstrated. IMPRESSION: Diffuse osteoporosis with no distinct fracture or subluxation. No distinct bony lesion. Electronically signed by: Ene Diana MD 07/04/22 02:23 AM
[2022-07-04 02:34] LABS: Appearance Urine Clear (Clear); Bacteria Urine Automated Negative (Negative); Bilirubin Urine Negative (Negative); Blood Urine Trace (Negative); Cast Urine Automated 0 /lpf (0-5); Color Urine Yellow; Glucose Urine UA Negative (Negative); Ketones Urine Negative (Negative); Leukocyte Esterase Urine Negative (Negative); Nitrite Urine Negative (Negative); Protein Urine Trace (Negative); RBC Urine Automated 0-4 /hpf (0-4); Specific Gravity Urine 1.044 (1.000-1.030); Urobilinogen Urine Negative (Negative); pH Urine 5.5 (4.5-7.5)
[2022-07-04] MEDS ORDERED: PROMETHAZINE HCL 6.25 MG in SODIUM CHLORIDE 0.9% 50 ML IV PRN (03:45)
[2022-07-04] MEDS ORDERED: IBUPROFEN 200 MG TAB PO PRN (03:45)
[2022-07-04] MEDS ORDERED: ACETAMINOPHEN 325 MG TAB PO PRN (03:45)
[2022-07-04] MEDS ORDERED: KETOROLAC TROMETHAMINE 15 MG/ML VIAL IV PRN (03:45)
--- NOTE | 2022-07-04 05:38 | Magnetic Resonance Report ---
Exam(s): MRI HEAD Without Contrast EXAM: MR Head Without Intravenous Contrast CLINICAL HISTORY: Reason for exam: tia. TECHNIQUE: Magnetic resonance images of the head/brain without intravenous contrast in multiple planes. COMPARISON: No relevant prior studies available. 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 No hemorrhage. Ventricles: Unremarkable. No ventriculomegaly. Bones/joints: Unremarkable. Sinuses: Unremarkable as visualized. No acute sinusitis. Mastoid air cells: Unremarkable as visualized. No mastoid effusion. Orbits: Unremarkable as visualized. IMPRESSION: No acute intracranial abnormality Electronically signed by: Ronald Forbes MD 07/04/22 05:37 AM
[2022-07-04 06:06] LABS: BUN Creatinine Ratio 28.3 (10-20); Calcium 9.9 mg/dl (8.6-10.3); Chol HDL Ratio 3.9 (0-5); Creatinine Clr Calc Pharmacy 94.3 ml/min; Est GFR (African American) 110.9 ml/min; Est GFR (Non-African American) 95.7 ml/min; Potassium 3.7 mmol/L (3.5-5.1)
[2022-07-04 06:29] LABS: Basophils # (auto) 0.01 K/uL (0-0.2); Basophils % (auto) 0.4 %; Hematocrit (blood only) 33.2 % (37.0-47.0); Hemoglobin 10.9 g/dl (12.0-16.0); Immature Granulocytes # (auto) 0.01 K/uL (0.01-0.20); Immature Granulocytes % (auto) 0.4 %; Lymphocytes % (auto) 15.2 %; Mean Corpuscular Hemoglobin 29.1 pg (25.0-34.0); Mean Corpuscular Hgb Conc 32.8 g/dL (32.0-36.0); Mean Corpuscular Volume 88.5 fL (80.0-100.0); Mean Platelet Volume 10.8 fL (9.4-12.4); Monocytes # (auto) 0.09 K/uL (0.11-0.59); Monocytes % (auto) 3.4 %; Neutrophils # (auto) 2.13 K/uL (1.40-6.50); Neutrophils % (auto) 80.6 %; Platelet Count 56 K/uL (130-400); Platelet Estimate Decreased (Normal); RDW Coefficient of Variation 14.3 % (11.5-14.5); RDW Standard Deviation 45.7 fL (36.4-46.3); Red Blood Count 3.75 M/uL (4.20-5.40); White Blood Count 2.64 K/ul (4.8-10.8)
[2022-07-04] MEDS: DOXYCYCLINE HYCLATE 100 MG CAP PO SCH ×2 (07:59→20:48)
--- NOTE | 2022-07-04 12:41 | Hospitalist Progress Note ---
Date of Service July 04, 2022 Assessment & Plan (1) Sepsis: Plan: Patient is a 67-year-old female with no significant past medical history presented to the ED with lethargy. Patient had tick bite on her left thigh last week. She was started on doxycycline on the day of the presentation. 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 CT headno acute abnormality CTA head and neckno significant stenosis/occlusion Brain MRIno acute stroke Labs personally reviewed; WBC of 2.6, hemoglobin of 10.9. [id number] Anaplasma smear -intra cytoplasmic neutrophilic inclusion Lyme disease IgG antibody positive, IgM negative Continue on doxycycline. Provide total of 10 days treatment. Awaiting confirmatory test for Anaplasma. Discussed with infectious disease (Dr. maldonado); he will be seeing the patient shortly. If no horacio block is present on EKG; can discontinue ceftriaxone. Elevated Troponin likely due to Demand ischemia EKG on admission shows normal sinus rhythm with ST depression in V4V6 High-sensitivity troponin up trended to 100 and down trended. Echocardiogram -EF of 60 to 65%; borderline concentric left ventricular hypertrophy. Abnormal TSH likely due to euthyroid sick syndrome-TSH low with normal free T4. Repeat TSH in 4 to 6 weeks. Full code DVT prophylaxisheparin currently on hold given thrombocytopenia. PT OT eval pending. Discussed with daughter at bedside. Answered questions/queries Time spent evaluating patient, direct bedside care, chart review, placing orders, interpretation of diagnostic studies, discussion with consultants, patient, and family members, as well as other required patient management activities is 60 minutes Please note the above document was generated using voice recognition software. It may contain grammatical, syntax or spelling errors. Any formal questions or concerns about the content, text or information contained within the body of this dictation should be directly addressed to the provider for clarification Admission and Anticipated Discharge Date Admission Date: July 04, 2022 Subjective Patient seen and examined at bedside. She is awake, alert oriented x3. She reports that she is feeling much better compared to presentation. She denies any fever, chills or neck stiffness. Review of Systems Review of Systems: All systems reviewed & are unremarkable except as noted in Subjective Physical Exam Physical Exam: GENERAL: Awake, alert orient x3; not in any distress. SKIN: Normal color, warm HEENT: [place] palpebral conjunctivae, no ptosis, dry buccal mucosa NECK : Supple, no tenderness CHEST : CTA, no tenderness HEART : Bradycardic, no obvious murmurs ABDOMEN: Some distention, nontender EXTREMITIES : Scaly rash over left lower extremity, minimal LLE swelling/tenderness, no other conspicuous deformities noted. Rash around the tick bite on back of her left thigh. NEUROLOGIC : Awake, alert orient x3. Grossly intact. Results & Data Results & Data Vital Signs (Past 12 Hours) Vital Signs Temp Pulse Pulse Resp BP BP Pulse Ox 07/04/22 12:20 37 C 70 16 126/75 96 07/04/22 08:00 37.7 C H 18 145/79 H 97 07/04/22 07:53 56 L 07/04/22 03:49 36.8 C 14 127/72 98 07/04/22 03:21 58 L 07/04/22 03:14 50 L 14 113/65 98 07/04/22 03:10 50 L 15 97 07/04/22 03:16 07/04/22 03:00 49 L 14 112/63 96 07/04/22 02:50 50 L 14 97 07/04/22 02:45 48 L 15 109/64 96 07/04/22 02:40 50 L 14 98 07/04/22 02:30 50 L 13 116/70 97 07/04/22 02:20 50 L 14 97 07/04/22 02:15 49 L 15 117/68 96 07/04/22 02:10 58 L 14 07/04/22 02:00 52 L 13 114/69 98 07/04/22 01:56 99 07/04/22 01:40 53 L 17 96 07/04/22 01:30 51 L 17 113/75 98 07/04/22 01:20 50 L 13 96 07/04/22 01:15 51 L 14 107/65 96 07/04/22 01:10 50 L 13 96 07/04/22 01:00 50 L 14 120/71 97 07/04/22 00:50 51 L 13 95 07/04/22 00:45 50 L 12 107/63 94 07/04/22 00:40 51 L 12 94 07/04/22 00:38 36.5 C O2 Del Method 07/04/22 12:20 Room Air 07/04/22 08:00 Room Air 07/04/22 07:53 07/04/22 03:49 Room Air 07/04/22 03:21 07/04/22 03:14 07/04/22 03:10 07/04/22 03:16 Room Air 07/04/22 03:00 07/04/22 02:50 07/04/22 02:45 07/04/22 02:40 07/04/22 02:30 07/04/22 02:20 07/04/22 02:15 07/04/22 02:10 07/04/22 02:00 07/04/22 01:56 07/04/22 01:40 07/04/22 01:30 07/04/22 01:20 07/04/22 01:15 07/04/22 01:10 07/04/22 01:00 07/04/22 00:50 07/04/22 00:45 07/04/22 00:40 07/04/22 00:38 Laboratory Results Laboratory Results WBC 2.64 K/ul (4.8-10.8) L 07/04/22 05:33 RBC 3.75 M/uL (4.20-5.40) L 07/04/22 05:33 Hgb 10.9 g/dl (12.0-16.0) L 07/04/22 05:33 POC Hgb 11.2 g/dl (12.0-16.0) L 07/03/22 19:41 Hct 33.2 % (37.0-47.0) L 07/04/22 05:33 POC Hct 33 % (37-47) L 07/03/22 19:41 MCV 88.5 fL (80.0-100.0) 07/04/22 05:33 MCH 29.1 pg (25.0-34.0) 07/04/22 05:33 MCHC 32.8 g/dL (32.0-36.0) 07/04/22 05:33 RDW Std Deviation 45.7 fL (36.4-46.3) 07/04/22 05:33 RDW Coeff of [place] 14.3 % (11.5-14.5) 07/04/22 05:33 Plt Count 56 K/uL (130-400) L 07/04/22 05:33 MPV 10.8 fL (9.4-12.4) 07/04/22 05:33 Immature Gran % (Auto) 0.4 % 07/04/22 05:33 Neut % (Auto) 80.6 % 07/04/22 05:33 Lymph % (Auto) 15.2 % 07/04/22 05:33 [place] % (Auto) 3.4 % 07/04/22 05:33 Eos % (Auto) 0.0 % 07/04/22 05:33 Baso % (Auto) 0.4 % 07/04/22 05:33 Neut # (Auto) 2.13 K/uL (1.40-6.50) 07/04/22 05:33 Lymph # (Auto) 0.40 K/uL (1.2-3.4) L 07/04/22 05:33 [place] # (Auto) 0.09 K/uL (0.11-0.59) L 07/04/22 05:33 Eos # (Auto) 0.00 K/uL (0-0.50) 07/04/22 05:33 Baso # (Auto) 0.01 K/uL (0-0.2) 07/04/22 05:33 Immature Gran # (Auto) 0.01 K/uL (0.01-0.20) 07/04/22 05:33 Platelet Estimate Decreased (Normal) L 07/04/22 05:33 RBC Morphology Unremarkable 07/03/22 19:15 Peripher Smr Path Cons 07/03/22 19:15 PT 13.5 Seconds (9.0-12.0) H 07/03/22 19:15 INR 1.2 (0.9-1.1) H 07/03/22 19:15 APTT 31.8 Seconds (21.0-31.0) H 07/03/22 19:15 PTT Ratio 1.1 07/03/22 19:15 POC Sodium 133 mmol/L (135-144) L 07/03/22 19:41 Sodium 136 mmol/L (136-145) 07/04/22 05:33 POC Potassium 3.3 mmol/L (3.3-5.0) 07/03/22 19:41 Potassium 3.7 mmol/L (3.5-5.1) 07/04/22 05:33 POC Chloride 101 mmol/L (101-112) 07/03/22 19:41 Chloride 110 mmol/L (98-107) H 07/04/22 05:33 Carbon Dioxide 25 mmol/L (21-32) 07/04/22 05:33 POC Total CO2 22 mmol/L (24-31) L 07/03/22 19:41 Anion Gap 1 (3-11) L 07/04/22 05:33 POC Anion Gap 15.0 mmol/L (16-25) L 07/03/22 19:41 POC BUN 24 mg/dl (7-18) H 07/03/22 19:41 BUN 17 mg/dl (6-23) 07/04/22 05:33 Creatinine 0.60 mg/dl (0.6-1.2) 07/04/22 05:33 POC Creatinine 0.7 mg/dl (0.6-1.3) 07/03/22 19:41 Est Cr Clr Drug Dosing 94.3 ml/min 07/04/22 05:33 Est GFR ( Amer) 110.9 ml/min 07/04/22 05:33 Est GFR (Non-Af Amer) 95.7 ml/min 07/04/22 05:33 BUN/Creatinine Ratio 28.3 (10-20) H 07/04/22 05:33 Glucose 91 mg/dl (70-99(Fasting)) 07/04/22 05:33 POC Glucose (other) 102 mg/dl (70-99) H 07/03/22 19:41 Lactate 1.1 mmol/L (0.4-2.0) 07/03/22 20:19 Calcium 9.9 mg/dl (8.6-10.3) 07/04/22 05:33 POC Ioniz Calcium Harini 1.38 mmol/l (1.12-1.32) H 07/03/22 19:41 Magnesium 1.8 mg/dl (1.7-2.4) 07/03/22 19:15 Total Bilirubin 0.5 mg/dl (0.2-1.0) 07/03/22 19:15 AST 76 U/L (13-39) H 07/03/22 19:15 ALT 39 U/L (7-52) 07/03/22 19:15 Alkaline Phosphatase 68 U/L (34-104) 07/03/22 19:15 Ammonia 26.0 umol/L (18-72) 07/04/22 05:33 Troponin I High Sens 25.6 pg/ml (0-14) H D 07/04/22 09:05 Total Protein 6.7 gm/dl (6.0-8.3) 07/03/22 19:15 Albumin 3.7 gm/dl (3.4-5.0) 07/03/22 19:15 Globulin 3.0 gm/dl (2.5-4.0) 07/03/22 19:15 Albumin/Globulin Ratio 1.2 (0.9-2) 07/03/22 19:15 Triglycerides 95 mg/dl (0-150) 07/04/22 05:33 Cholesterol 164 mg/dl (0-200) 07/04/22 05:33 LDL Cholesterol, Calc 103 mg/dl 07/04/22 05:33 VLDL Cholesterol, Calc 19 mg/dl (0-30) 07/04/22 05:33 HDL Cholesterol 42 mg/dl 07/04/22 05:33 Cholesterol/HDL Ratio 3.9 (0-5) 07/04/22 05:33 Procalcitonin 3.91 ng/ml (0-0.5) H 07/03/22 19:15 TSH 0.288 uIu/ml (0.300-4.500) L 07/03/22 22:52 Free T4 1.00 ng/dl (0.61-1.60) 07/03/22 22:52 Urine Color Yellow 07/04/22 02:19 Urine Appearance Clear (Clear) 07/04/22 02:19 Urine pH 5.5 (4.5-7.5) 07/04/22 02:19 Ur Specific [place] 1.044 (1.000-1.030) H 07/04/22 02:19 Urine Protein Trace (Negative) H 07/04/22 02:19 Urine Glucose (UA) Negative (Negative) 07/04/22 02:19 Urine Ketones Negative (Negative) 07/04/22 02:19 Urine Blood Trace (Negative) H 07/04/22 02:19 Urine Nitrite Negative (Negative) 07/04/22 02:19 Urine Bilirubin Negative (Negative) 07/04/22 02:19 Urine Urobilinogen Negative (Negative) 07/04/22 02:19 Ur Leukocyte Esterase Negative (Negative) 07/04/22 02:19 Urine WBC (Auto) 1-5 /hpf (0-5) 07/04/22 02:19 Urine RBC (Auto) 0-4 /hpf (0-4) 07/04/22 02:19 U Hyaline Cast (Auto) 0 /lpf (0-5) 07/04/22 02:19 U Epithel Cells (Auto) 5-10 /lpf (0-5) H 07/04/22 02:19 Urine Bacteria (Auto) Negative (Negative) 07/04/22 02:19 Urine Yeast Present (None Prsent) A 07/04/22 02:19 Anaplasma Smear See Comment A 07/03/22 19:15 A. phagocytophilum DNA Cancelled 07/03/22 19:15 Babesia Smear See Comment 07/03/22 19:15 Lyme Disease IgG Ab Positive (Negative) A 07/03/22 19:15 Lyme Disease IgM Ab Negative (Negative) 07/03/22 19:15 SARS-CoV-2, RNA, NAAT NEGATIVE (NEGATIVE) 07/03/22 21:57 Blood Type A Negative 07/03/22 20:20 Antibody Screen NEGATIVE 07/03/22 20:20 Impressions Chest X-Ray 07/03/22 19:21 XR chest 1V portable HISTORY: neuro deficit, acute stroke suspected COMPARISON: None. FINDINGS: Slightly rotated study. No pneumothorax. No pleural effusions. No focal lung consolidations to suggest a pneumonia. No evidence for pulmonary milly ma. Calcified left hilar lymph nodes are noted. Incidental note is made of a small right azygos lobe. The heart is normal in size. Mild scoliosis is noted. Prior cholecystectomy. There is a punctate calcified granuloma within the left midlung zone. IMPRESSION: No acute process. ACT 112: Negative or not required by law. Electronically signed by: Vasquez Gann M.D. 07/03/2022 8:[address] 07/03/22 19:[address] DOSE: HISTORY: Right-sided weakness. Confusion. neuro deficit, acute stroke suspected TECHNIQUE: Multiaxial CT images of the head were performed without the use of intravenous contrast. Automated exposure control was utilized for this study. A dose lowering technique was utilized adhering to the principles of ALARA. Comparison: None. Findings: The paranasal sinuses and mastoid air cells are clear. The calvarium and skull base are intact. There is no mass, hematoma, midline shift, acute infarct. White matter hypodensity is nonspecific but suggestive of microvascular ischemic change. The ventricles and sulci are within normal limits. Impression: No acute intracranial abnormality. ACT 112: Negative or not required by law. Electronically signed by: Vasquez Gann M.D. 07/03/2022 8:49 PM Head CTA 07/03/22 19:21 HEAD & NECK CTA HISTORY: Right-sided weakness. Confusion. neuro deficit, acute stroke suspected TECHNIQUE: Multiaxial CT images of the head were performed following the intravenous administration of contrast to evaluate the major cerebral vessels. Multiaxial CT images of the neck were also performed following the intravenous administration of contrast to evaluate the major cervical vessels. Maximum intensity projection images were also obtained. A dose lowering technique was utilized adhering to the principles of ALARA. COMPARISON: Noncontrast head CT 07/03/2022. FINDINGS: There is no mass, hematoma, midline shift, or acute infarct. Visualized intracranial internal carotid arteries, distal vertebral arteries, and basilar artery are widely patent. There is no significant stenosis, occlusion, or aneurysm seen within the bilateral ACAs, MCAs, or fraternity adviser. The major dural venous sinuses are patent. The aortic arch and proximal great vessels are widely patent. There is no significant stenosis, occlusion, or dissection identified within the bilateral common carotid, internal carotid, or vertebral arteries. IMPRESSION: 1. No significant stenosis, occlusion, or aneurysm within the [place]. 2. No significant stenosis, occlusion, or dissection identified within the carotid or vertebral arteries. ACT 112: Negative or not required by law. Electronically signed by: Vasquez Gann M.D. 07/03/2022 8:57 PM Neck CTA 07/03/22 19:21 HEAD & NECK CTA HISTORY: Right-sided weakness. Confusion. neuro deficit, acute stroke suspected TECHNIQUE: Multiaxial CT images of the head were performed following the intravenous administration of contrast to evaluate the major cerebral vessels. Multiaxial CT images of the neck were also performed following the intravenous administration of contrast to evaluate the major cervical vessels. Maximum intensity projection images were also obtained. A dose lowering technique was utilized adhering to the principles of ALARA. COMPARISON: Noncontrast head CT 07/03/2022. FINDINGS: There is no mass, hematoma, midline shift, or acute infarct. Visualized intracranial internal carotid arteries, distal vertebral arteries, and basilar artery are widely patent. There is no significant stenosis, occlusion, or aneurysm seen within the bilateral ACAs, MCAs, or fraternity adviser. The major dural venous sinuses are patent. The aortic arch and proximal great vessels are widely patent. There is no significant stenosis, occlusion, or dissection identified within the bilateral common carotid, internal carotid, or vertebral arteries. IMPRESSION: 1. No significant stenosis, occlusion, or aneurysm within the [place]. 2. No significant stenosis, occlusion, or dissection identified within the carotid or vertebral arteries. ACT 112: Negative or not required by law. Electronically signed by: Vasquez Gann M.D. 07/03/2022 8:[address] 07/04/22 01:33 Exam(s): CT EXTREMITY LEFT LOWER Without Contrast EXAM: CT Left Lower Extremity Without Intravenous Contrast CLINICAL HISTORY: Reason for exam: swelling. TECHNIQUE: Axial computed tomography images of the left lower extremity without intravenous contrast. CTDI is 4.25 mGy and DLP is 204.66 mGy-cm. Automated exposure control was utilized for the study. A dose lowering technique was utilized adhering to the principles of ALARA. COMPARISON: None. FINDINGS: Bones/joints: Diffuse osteoporosis. Otherwise normal tibia and fibula with no acute fracture or destructive bony lesion seen. Mild degenerative disease at the level of the knee and ankle. Trace joint fluid at the level of the knee. No dislocation. Soft tissues: Unremarkable. Other findings: Diffuse varicosities throughout the calf demonstrated. IMPRESSION: Diffuse osteoporosis with no distinct fracture or subluxation. No distinct bony lesion. Electronically signed by: Ene Diana MD 07/04/22 02:23 AM Brain MRI 07/04/22 03:45 Exam(s): MRI HEAD Without Contrast EXAM: MR Head Without Intravenous Contrast CLINICAL HISTORY: Reason for exam: tia. TECHNIQUE: Magnetic resonance images of the head/brain without intravenous contrast in multiple planes. COMPARISON: No relevant prior studies available. 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 No hemorrhage. Ventricles: Unremarkable. No ventriculomegaly. Bones/joints: Unremarkable. Sinuses: Unremarkable as visualized. No acute sinusitis. Mastoid air cells: Unremarkable as visualized. No mastoid effusion. Orbits: Unremarkable as visualized. IMPRESSION: No acute intracranial abnormality Electronically signed by: Ronald Forbes MD 07/04/22 05:37 AM
[2022-07-04 14:42] LABS: Anaplasmosis Smear(Rpt to DOH) Pos for Anaplasma
--- NOTE | 2022-07-04 16:44 | Electrocardiogram Report ---
Test Reason : Blood Pressure : / mmHG Vent. Rate : 074 BPM Atrial Rate : 074 BPM P-R Int : 146 ms QRS Dur : 096 ms QT Int : 352 ms P-R-T Axes : 057 -07 -18 degrees QTc Int : 390 ms Normal sinus rhythm Nonspecific ST and T wave abnormality Abnormal ECG No previous ECGs available Confirmed by Dario Badillo ([id number]) on 07/04/2022 4:44:06 PM Referred By: REFERRED SELF Confirmed By:Dario Badillo
[2022-07-04] MEDS ORDERED: cefTRIAXone SODIUM 2,000 MG in DEXTROSE 5% AD-VAN 50 ML IV SCH (20:00)
[2022-07-05 07:33] LABS: BUN Creatinine Ratio 19.6 (10-20); Calcium 10.1 mg/dl (8.6-10.3); Creatinine Clr Calc Pharmacy 105.4 ml/min; Est GFR (Non-African American) 100.9 ml/min; Potassium 3.3 mmol/L (3.5-5.1)
[2022-07-05 07:38] LABS: Hematocrit (blood only) 33.4 % (37.0-47.0); Hemoglobin 11.2 g/dl (12.0-16.0); Mean Corpuscular Hgb Conc 33.5 g/dL (32.0-36.0); Mean Corpuscular Volume 86.5 fL (80.0-100.0); Mean Platelet Volume 10.7 fL (9.4-12.4); Platelet Count 49 K/uL (130-400); RDW Coefficient of Variation 14.1 % (11.5-14.5); RDW Standard Deviation 44.7 fL (36.4-46.3); Red Blood Count 3.86 M/uL (4.20-5.40); White Blood Count 2.32 K/ul (4.8-10.8)
[2022-07-05] MEDS ORDERED: POTASSIUM CHLORIDE CRTAB 20 MEQ TABCR PO STA (07:55)
[2022-07-05] MEDS: DOXYCYCLINE HYCLATE 100 MG CAP PO SCH (08:16)
[2022-07-05 08:24] LABS: Basophils # (auto) 0.01 K/uL (0-0.2); Basophils % (auto) 0.4 %; Eosinophils # (auto) 0.01 K/uL (0-0.50); Eosinophils % (auto) 0.4 %; Immature Granulocytes # (auto) 0.01 K/uL (0.01-0.20); Immature Granulocytes % (auto) 0.4 %; Lymphocytes % (auto) 43.1 %; Monocytes # (auto) 0.18 K/uL (0.11-0.59); Monocytes % (auto) 7.8 %; Neutrophils # (auto) 1.11 K/uL (1.40-6.50); Neutrophils % (auto) 47.9 %
--- NOTE | 2022-07-05 14:48 | Discharge Summary ---
Date of Service July 05, 2022 Admission HPI Per Admitting Provider History obtained from patient, family, and records. Limited history from patient secondary to the lethargic state. No significant medical history. Patient has had a wound on the left lower leg for a few months now as per daughter. Daughter not sure if patient had consulted a doctor for issue. Patient noted to have worsening confusion and lethargy over the last 2 days. Possible tick bite on her left leg close to the knee last week. Local doctor started patient on doxycycline course. Patient feeling weak all over. Denies headache, chest pain, SOB, abdominal pain. Patient noted to have transient right facial weakness. At the ER, IV vancomycin, ceftriaxone, and doxycycline administered for sepsis. Patient mentation much improved as per daughter. Patient BP later noted to be 90s, heart rate 50s. Medical History as above Surgical History : Cholecystectomy Family History : DM Personal/Social history : Non-smoker, no EtOH intake, grocery employee Admission Exam Per Admitting Provider GENERAL: Lethargic, no respiratory distress SKIN: Normal color, warm HEENT: [place] palpebral conjunctivae, no ptosis, dry buccal mucosa NECK : Supple, no tenderness CHEST : CTA, no tenderness HEART : Bradycardic, no obvious murmurs ABDOMEN: Some distention, nontender EXTREMITIES : Scaly rash over left lower extremity, minimal LLE swelling/tenderness, no other conspicuous deformities noted NEUROLOGIC : Lethargic, no facial asymmetry, gait and stance not assessed Principal Diagnosis 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 SKIN: Normal color, warm HEENT: [place] palpebral conjunctivae, no ptosis, dry buccal mucosa NECK : Supple, no tenderness CHEST : CTA, no tenderness HEART : Bradycardic, no obvious murmurs ABDOMEN: Some distention, nontender EXTREMITIES : Scaly rash over left lower extremity, minimal LLE swelling/tenderness, no other conspicuous deformities noted. Rash around the tick bite on back of her left thigh. NEUROLOGIC : Awake, alert orient x3. Grossly intact. Discharge Data Allergies Allergy/AdvReac Type Severity Reaction Status Date / Time No Known Allergies Allergy Verified 07/03/22 19:37 Consultations 07/03/22 21:19 ED Decision to Admit Stat 07/04/22 01:40 Consult Infectious Diseases Routine Ordered Studies 07/03/22 19:21 CT angio head w con Stat CT angio neck with con Stat CT head/brain wo con Stat 07/04/22 01:33 CT tib/fib LT wo con Stat 07/04/22 03:45 MR brain wo con Urgent Hospital Course (1) Sepsis: Patient is a 67-year-old female with no significant past medical history presented to the ED with lethargy. Patient had tick bite on her left thigh last week. She was started on doxycycline on the day of the presentation. 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 CT headno acute abnormality CTA head and neckno significant stenosis/occlusion Brain MRIno acute stroke Anaplasma smear -intra cytoplasmic neutrophilic inclusion Lyme disease IgG antibody positive, IgM negative Discussed with infectious disease (Dr. maldonado); recommended doxycycline 100 mg twice daily for total of 14 days. Also, patient to follow-up with her primary care doctor and repeat CBC given pancytopenia. Confirmatory test for Lyme disease was pending at the time of discharge. Elevated Troponin likely due to Demand ischemia EKG on admission shows normal sinus rhythm with ST depression in V4V6 High-sensitivity troponin up trended to 100 and down trended. Echocardiogram -EF of 60 to 65%; borderline concentric left ventricular hypertrophy. No wall motion abnormality seen. Abnormal TSH likely due to euthyroid sick syndrome-TSH low with normal free T4. Repeat TSH in 4 to 6 weeks. Please note the above document was generated using voice recognition software. It may contain grammatical, syntax or spelling errors. Any formal questions or concerns about the content, text or information contained within the body of this dictation should be directly addressed to the provider for clarification Total Time Total Time Spent Total Time Spent (In Minutes): 40 Total Time Includes: Examination of the Patient, Discharge Planning, Medication Reconciliation, Communication With Other Providers and Other Discharge Plan Discharge Items Patient Disposition: Home - Self-Care Reason For Visit: HYPOTENSION, BRADYCARDIA Discharge Diagnosis: 1) Anaplasmosis 2) Lyme Serology positive 3) Demand ischemia Activity: Resume your previous activity Non-emergency contact: Primary Care Provider Call non-emergency contact if: you have any medication questions and your symptoms worsen Follow-up/Referrals: PCP,NO [Primary Care Provider] - (Patient will contact) Diet: Regular Addtl Attending Provider Instructions: You were admitted here with tick borne illness called Anaplasmosis. You were also found to have positive lyme test but the confirmatory test is still pending. Please take Doxycycline 100mg twice daily for total of 14 days( Till Jul 17 2022) Please follow up with your doctor and obtain CBC ( blood work) sometime next week. Pending Studies at Discharge: Yes Studies:: Lyme disease confirmation test Stand-Alone Forms: My [facility] [employer], Smoking Cessation Medications and DC Order Prescriptions: New doxycycline hyclate 100 mg Capsule 100 mg PO BID 12 Days Qty: 24 0RF Discontinued doxycycline monohydrate 100 mg Capsule 100 mg PO BID Rx Instructions: STARTED 07/03/22 Discharge Orders: Discharge Order (Routine); Ordered 07/05/22 Ordered By: Sumit Bonilla/Other Patient Handouts: Understanding Deep Vein Thrombosis, DVT Complications, Preventing Deep Vein Thrombosis Admission Data Admit Date/Time: 07/04/22 01:38 Attending Provider: Sumit Harding Admit Provider: Juan Cabrera Primary Care Provider: PCP,NO Other Providers: Juan Cabrera ; Devaughn Royal ; Tiffanie Maldonado ; Donaldo Bond I. ; Armando Johnson II ; Alyssa Ramos ; Yusuf Rodrigues ; Jed Pierce ; Donna Donovan Other Interventions: Discharge Summary Assessment (RN) Last Done: 07/05/22 08:52
[2022-07-06 13:33] LABS: 18KDIGG Band REACTIVE; 23KDIGG Band NON-REACTIVE; 23KDIGM Band NON-REACTIVE; 28KDIGG Band REACTIVE; 30KDIGG Band REACTIVE; 39KDIGG Band REACTIVE; 39KDIGM Band NON-REACTIVE; 41KDIGG Band REACTIVE; 41KDIGM Band REACTIVE; 45KDIGG Band REACTIVE; 58KDIGG Band REACTIVE; 66KDIGG Band REACTIVE; 93KDIGG Band REACTIVE; Lyme Antibodies, WB IgG POSITIVE (NEGATIVE); Lyme Antibodies, WB IgM NEGATIVE (NEGATIVE)
[2022-07-07 15:42] LABS: Babesia microti DNA Not Detected (Not Detected)
== END 2022-07-05 09:57 | disposition home or self-care (01) | DRG 871 ==
LOC: ED 18:57 → 1E 07-04 01:38 → 4W 07-04 17:43